=== PATIENT | female | born 1950 | race Caucasian/White ===

== ENCOUNTER → 2018-02-27 09:19 | Outpatient (CLI) | payer MEDICARE, SELFPAY | PROVIDERS: Family Provider Family Medicine; Referring Provider Registered Nurse; Visit Provider Registered Nurse | DX: R00.2 Palpitations (principal) | CPT/HCPCS: 93225; 93226 ==

== ENCOUNTER → 2019-01-21 | Outpatient (CLI) | payer MEDICARE, SELFPAY ==
--- NOTE | 2019-01-21 | LES_PTH ---
PATIENT: TRENTON CUENCA LOC: [facility] U#:[id number] AGE/SX: 68/F ROOM: RE01/21/[address]: Dr. Santos Stephen MD : 1950 BED: DIS: 01/21/2019 SPEC #: [id number] RECD: 01/21/19 13:44 STATUS: TONEY REChandrakant #: [id number] AC: 01/21/19 00:[address]: Santos Stephen DEPT: SURGICAL PATHOLOGY RECD BY: Manjit Sanchez ENTERED: 01/21/19 13:53 SP TYPE: Lesion OTHR DR: MD Wayne Petersen Tissues: Skin of eyelid, NOS Procedures: Surgery Specimen Level IV HEADER OPERATION: Cyst removal LLL PRE-OP DIAGNOSIS: Increased size with vascularity TISSUE SUBMITTED: LLL MICROSCOPIC DIAGNOSIS Left lower lid cyst, biopsy: Simple ductal cyst (cyst of Moll's gland). SJ:stan 01/22/19 MICROSCOPIC DESCRIPTION Slides are reviewed. GROSS DESCRIPTION Received in fixative is one container labeled with the patient's name and designated left lower lid. The specimen consists of a minute fragment of vila-white skin measuring 0.1 cm in greatest dimension. The entire specimen is submitted in one cassette. / CHAZ:stan 01/21/19 TC:5 CPT: [id number]
== END | disposition home or self-care (01) ==
PROVIDERS: Family Provider Family Medicine; Referring Provider Ophthalmology; Visit Provider Ophthalmology
DX: H02.825 Cysts of left lower eyelid (principal)
CPT/HCPCS: 88305